=== PATIENT | female | born 1965 | race Caucasian/White ===

== ENCOUNTER 2020-07-17 08:17 | Emergency (ER) | payer OTHER ==
--- OUTSIDE RECORDS SUMMARY | 2020-07-17 08:33 | XMS REPORT | Clinical Summary ---
:1965 Author Organization [facility] Address [address] [place] [address] Care Team Providers Name Role Phone Asked, No Pcp Primary Care Provider Unavailable Allergies Active Allergy Reactions Severity Noted Date Comments Sulfa (Sulfonamide Antibiotics) Hives 0 sweling Medications Medication Sig Dispensed Refills Start Date End Date Status amLODIPine (NORVASC) 5 Take 5 mg by 0 Active mg tablet mouth daily. triamterene-hydrochlorot Take 1 tablet by 0 Active hiazid (MAXZIDE-25) mouth daily. 37.5-25 mg per tablet levothyroxine Take 150 mcg by 0 Active (SYNTHROID) 150 mcg mouth daily. tablet simvastatin (ZOCOR) 20 Take 20 mg by 0 Active mg tablet mouth nightly. diclofenac (VOLTAREN) 75 Take 75 mg by 0 Active MG EC tablet mouth 2 (two) times a day. Active Problems No known active problems Encounters Date Type Specialty Care Team Description 07/09/2020 Orders Only General Surgery Mallorie Arreguin RN Preop e xamination (Primary Dx); Benign essentia l hypertension; Morbid obesity (HCC); Hyperlipidemia, unspecified hyperlipidemia type 07/03/2020 Travel 06/27/2020 Orders Only General Surgery Harmony Hinson MA Pre-op erative laboratory examination (Primary Dx); BMI 40.0-44.9, adult (HCC); Morbid obesity due to excess calories (HCC); Essential hyper tension; Hyperlipidemia, unspecified hyperlipidemia type 06/02/2020 Office Visit General Surgery Benji Antunez MD Morbid obesity due to excess calories (HCC) (Primary Dx); Essential hyper tension; Hyperlipidemia, unspecified hyperlipidemia type 06/02/2020 Travel 03/12/2020 Travel after 07/17/2019 Surgical History Surgery Date Site/Laterality Comments APPENDECTOMY 09/19/1974 - 09/18/1975 CHOLECYSTECTOMY 09/19/1997 - 09/18/1998 HYSTERECTOMY 09/19/1997 - 09/18/1998 partial TONSILLECTOMY 09/19/1981 - 09/18/1982 PLANTAR FASCIECTOMY 09/19/2001 - 09/18/2002 NM THYROID THERAPY ABLATION BASIC 09/19/2006 - 09/18/2007 KNEE CARTILAGE SURGERY 09/19/2016 - 09/18/2017 Right DEBRIDEMENT ELBOW DEEP Lateral 2014 TIBIA FRACTURE SURGERY 09/19/2017 - 09/18/2018 Left ank le TOE SURGERY 09/19/2019 - 09/18/2020 Right Medical History Medical History Date Comments Allergic GERD (gastroesophageal reflux disease) Hyperlipidemia Hypertension Arthritis Family History Medical History Relation Name Comments Hypertension Father Heart disease Maternal Grandfather Breast cancer Maternal Grandmother Aortic stenosis Mother Heart disease Mother Hypertension Mother Stroke Mother Relation Name Status Comments Father Maternal Grandfather Maternal Grandmother Mother Social History Tobacco Use Types Packs/Day Years Used Date Never Smoker Smokeless Tobacco: Never Used Alcohol Use Drinks/Week oz/Week Comments Yes 2-3 times a corin h Sex Assigned at Date Recorded Not on file COVID-19 Exposure Response Date Recorded In the last month, have you been in contact Unable to assess 07/03/2020 9:28 AM CDT with someone who was confirmed or suspected to have Coronavirus / COVID-19? Last Filed Vital Signs Vital Sign Reading Time Taken Comments Blood Pressure 164/86 06/02/2020 12:52 PM CDT Pulse 68 06/02/2020 12:52 PM CDT Temperature 36 C (96.8 F) 06/02/2020 12:52 PM CDT Respiratory Rate 18 06/02/2020 12:52 PM CDT Oxygen Saturation 97% 06/02/2020 12:52 PM CDT Inhaled Oxygen Concentration - - Weight 123 kg (271 lb 14.4 oz) 06/02/2020 12:52 PM CDT Height 170.2 cm (5' 7") 06/02/2020 12:52 PM CDT Body Mass Index 42.59 06/02/2020 12:52 PM CDT Plan of Treatment Date Type Specialty Care Team Description 08/11/2020 Pre-Admission Pre-Admission Benji Antunez, Testing Testing [address] [facility] [address] [place] [address] 08/25/2020 Office Visit General Surgery Benji Antunez MD [address] [facility] [address] [place], [place] [id number] 08/29/2020 Hospital Encounter General Surgery Benji Antunez MD [address] [facility] [address] [place], [place] [id number] 08/29/2020 Surgery General Surgery Benji Antunez LAPAROSCO PIC EDWINA EN Y MD GASTRIC BYPASS WITH [address] [facility] END[address] [place], [place] [id number] Health Maintenance Due Date Last Done Comments CERVICAL CANCER SCREENING 11/26/1984 BREAST CANCER SCREENING 11/26/2013 COLONOSCOPY SCREENING 11/26/2013 SHINGLES VACCINES (#1) 11/26/2013 INFLUENZA VACCINE 04/19/2020 Results Not on fileafter 07/17/2019 Advance Directives For more information, please contact: [phone] Type Date Recorded 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
--- OUTSIDE RECORDS SUMMARY | 2020-07-17 08:34 | XMS REPORT | Continuity of Care Document ---
:1965 Author Organization [facility] t Address [address] [place] [address] [address] [place] [address] Care Team Providers Name Role Phone Asked, Pcp Primary Care Physician Unavailable Kallie GONGORA Attending Clinician Unavailable Joya BROWN Attending Clinician Unavailable Annie JEAN BAPTISTE Attending Clinician Payers Payer Name Policy Type Policy Effective Date Expiration Date Sour ce Number CIGNAKELSEY [id number] 2011 [place] YBAMARILIS CIGNA 00:00:00 [facility] [id number] /2011-PresentHMO Problems This patient has no known problems. Allergies, Adverse Reactions, Alerts Allergy Allergy Status Severity Reaction(s) Onset Inactive Treating Comm ents Source Name Type Date Date Clinician Sulfa Propensi Active Hives Man [facility] (Sulfona ty to 06-02 Methodi mide adverse 00:00: st Antibiot reaction 00 ics) s to drug Family History Family Member Diagnosis Comments Start Date Stop Date Source Natural father Hypertension [facility] Maternal grandfather Heart disease [facility] Maternal grandmother Breast cancer [facility] Natural mother Aortic stenosis [place] [facility] Natural mother Heart disease [facility] Natural mother Hypertension [facility] Social History Social Habit Start Date Stop Date Quantity Comments Source Sex Assigned At [facility] Exposure to Unable to assess [facility] SARS-CoV-2 (event) Tobacco use and 2020-06-02 2020-06-02 Never used [facility] ethodist exposure 00:00:00 00:00:00 Alcohol intake 2020-06-02 2020-06-02 Current drinker [place] [facility] 00:00:00 00:00:00 of alcohol (finding) Alcohol Comment 2020-06-02 2020-06-02 2-3 times a Jose Elias Wardist 00:00:00 00:00:00 month Smoking Status Start Date Stop Date Source Never smoker Jose Elias Killian t Medications Ordered Filled Start Stop Current Ordering Indication Dosage Frequency Signature Comments Components Source Medication Medication Date Date Medication? Clinician (SIG) Name Name amLODIPine 2020-0 Yes 5mg QD Take 5 mg [place] (NORVASC) 5 9-14 by mouth Meth florinda mg tablet 13:45: daily. st 32 triamterene 2020-0 Yes 1{tbl} QD Take 1 [place] -hydrochlor 9-14 tablet by Met hodi othiazid 13:45: mouth st (MAXZIDE-25 32 daily. ) 37.5-25 mg per tablet levothyroxi 2019-0 Yes 150ug QD Take 150 [place] ne 9-14 mcg by Methodi (SYNTHROID) 13:45: mouth st 150 mcg 32 daily. tablet simvastatin 2019-0 Yes 20mg QD Take 20 mg [place] (ZOCOR) 20 9-14 by mouth Metho di mg tablet 13:45: nightly. st 32 diclofenac 2020-0 Yes 75mg Q.5D Take 75 mg [place] (VOLTAREN) 9-14 by mouth 2 Met hodi 75 MG EC 13:45: (two) st tablet 32 times a day. Vital Signs Vital Name Observation Time Observation Value Comments Source Systolic blood 2020-06-02 12:52:00 164 mm[Hg] [place] n [facility] pressure Diastolic blood 2020-06-02 12:52:00 86 mm[Hg] [place] [facility] pressure Heart rate 2020-06-02 12:52:00 68 /min Jose Elias [place] Body temperature 2020-06-02 12:52:00 36 Emily [place] [facility] Respiratory rate 2020-06-02 12:52:00 18 /min [place] [facility] Body height 2020-06-02 12:52:00 170.2 cm Jose Elias [place] Body weight 2020-06-02 12:52:00 123.333 kg Jose Elias [place] BMI 2020-06-02 12:52:00 42.59 kg/m2 Jose Elias [place] Oxygen saturation in 2020-06-02 12:52:00 97 /min Jose Elias [place] Arterial blood by Pulse oximetry Procedures This patient has no known procedures. Plan of Care Planned Activity Planned Date Details Comments Source Future Scheduled Test 2020-04-19 INFLUENZA VACCINE [place] [facility] 00:00:00 [code = INFLUENZA VACCINE] Future Scheduled Test 2013-11-26 BREAST CANCER [place] [facility] 00:00:00 SCREENING [code = BREAST CANCER SCREENING] Future Scheduled Test 2013-11-26 COLONOSCOPY [place] [facility] 00:00:00 SCREENING [code = COLONOSCOPY SCREENING] Future Scheduled Test 2013-11-26 SHINGLES VACCINES [place] [facility] 00:00:00 (#1) [code = SHINGLES VACCINES (#1)] Future Scheduled Test 1984-11-26 Screening for [place] [facility] 00:00:00 malignant neoplasm of cervix (procedure) [code = 646736170] Future Appointment 2020-08-29 Benji Antunez MD, [facility] 11:00:[address] [place] [address]; [address] [place] [address] Future Appointment 2020-08-29 Benji Antunez MD, [facility] 11:00:[address] [place] [address]; [address] [place] [address] Encounters Start End Encounter Admission Attending Care Care Encounter Source Date/Time Date/Time Type Type Clinicians Facility Department ID 2020-06-02 2020-06-02 Outpatient ANNIE Sebastian [facility] [id number] [address] 00:00:00 00:00:00 BENJI [id number] Results This patient has no known results.
[2020-07-17] MEDS ORDERED: MECLIZINE HCL 12.5 MG TAB ONE (08:51)
[2020-07-17] MEDS ORDERED: DIAZEPAM 10 MG/2 ML INJ SYRINGE ONE ×2 (08:51→13:03)
[2020-07-17] MEDS ORDERED: ONDANSETRON 4 MG/2 ML VIAL ONE ×2 (08:51→12:09)
[2020-07-17] MEDS ORDERED: NA CHLORIDE 0.9% 500 ML ONE (08:52)
[2020-07-17 08:54] LABS: Absolute Lymphocytes (CBC) 3.8 K/uL (0.7-4.9); Basophils % 1.2 % (0-1.3); Hematocrit 45.7 % (36.0-45.0); Lymphocytes % 32.9 % (15.3-44.8); MPV 7.5 fL (7.6-11.3); RBC Red Blood Cell Count 5.13 M/uL (3.86-4.86)
[2020-07-17 09:00] LABS: Protime INR 0.97
--- NOTE | 2020-07-17 09:04 | RAD REPORT ---
EXAM DESCRIPTION: CT - Head Brain Wo Cont - 07/17/2020 8:56 am CLINICAL HISTORY: Dizziness COMPARISON: None. TECHNIQUE: Computed axial tomography of the head was obtained. IV contrast was not requested. All CT scans are performed using dose optimization technique as appropriate and may include automated exposure control or mA/KV adjustment according to patient size. FINDINGS: An intracranial bleed is not seen . Partial empty sella turcica The ventricles are normal in caliber. No extra-axial fluid collection is noted. Fluid within the sinuses/ mastoids is not seen. IMPRESSION: No acute intracranial abnormality is seen. If patient's symptoms persist MRI of the bra in would be recommended.
--- NOTE | 2020-07-17 09:08 | RAD REPORT ---
EXAM DESCRIPTION: Isabel Single View07/17/2020 9:02 am CLINICAL HISTORY: Dizziness COMPARISON: none FINDINGS: The lungs appear clear of acute infiltrate. The heart is normal size IMPRESSION: No acute abnormalities displayed
[2020-07-17 09:21] LABS: ALT/SGPT 40 U/L (12-78); AST/SGOT 37 U/L (15-37); Albumin 3.7 g/dL (3.4-5.0); Alkaline Phosphatase 103 U/L (45-117); BUN Blood Urea Nitrogen 22 mg/dL (7-18); Bicarbonate 26 mmol/L (21-32); Bilirubin Direct 0.1 mg/dL (0-0.2); Bilirubin Total 0.5 mg/dL (0.2-1.0); Glucose Level 121 mg/dL (74-106); NT PRO-BNP 45 pg/mL (<125); Potassium 3.6 mmol/L (3.5-5.1); Protein, Total 7.5 g/dL (6.4-8.2); Sodium Level 144 mmol/L (136-145); Troponin (Emerg Dept Use Only) < 0.02 ng/mL (0.0-0.045)
--- NOTE | 2020-07-17 12:12 | RAD REPORT ---
EXAM DESCRIPTION: MRI - MRA Neck W/Wo Cont - 07/17/2020 11:39 am CLINICAL HISTORY: Blurred vision/dizziness COMPARISON: None. TECHNIQUE: Magnetic resonance angiogram of the neck was performed. Twenty cc MultiHance was administ ered intravenously. 3D MIPS reconstruction performed FINDINGS: The common carotid, internal carotid and external carotid arteries do not demonstrate a si gnificant stenosis. An aneurysm is not seen. The vertebral arteries are codominant without visualization of an abnormality. IMPRESSION: Unremarkable MRA neck NASCET criteria used. Mild 0-49% stenosis Moderate 50-69% stenosis Severe 70-99% stenosis
--- NOTE | 2020-07-17 12:16 | RAD REPORT ---
EXAM DESCRIPTION: MRI - MRA Head Wo Cont - 07/17/2020 11:39 am CLINICAL HISTORY: Blurred vision/dizziness COMPARISON: None. TECHNIQUE: Magnetic resonance angiogram was performed. 3D MIPS reconstruction performed FINDINGS: The anterior cerebral, middle cerebral, posterior cerebral, distal internal carotid and ba silar arteries do not demonstrate a significant stenosis. An aneurysm is not displayed. Dolichoectasia of the vertebrobasilar artery IMPRESSION: No significant abnormality displayed
--- NOTE | 2020-07-17 12:17 | RAD REPORT ---
EXAM DESCRIPTION: MRI - Brain W/Wo Cont - 07/17/2020 11:39 am CLINICAL HISTORY: Blurred vision/dizziness COMPARISON: July 17, [address] TECHNIQUE: Axial, sagittal, and coronal magnetic images of the brain were obtained. 20 cc MultiHance administered intravenously FINDINGS: No significant abnormal signal within the brain noted The ventricles are normal in caliber. Diffusion-weighted/ ADC mapping sequences do not demonstrate evidence of an acute infarction. No abnormal enhancement within the brain is seen. An extra-axial fluid collection is not noted. Fluid within the sinuses/mastoids is not seen IMPRESSION: No acute abnormality displayed
--- NOTE | 2020-07-17 13:25 | ER ---
Nurse's Notes [facility] Name: May Hernadez Age: 54 yrs Sex: Female : 1965 Arrival Date: 07/17/2020 Time: 08:20 Bed 6 Private MD: Diagnosis: Dizziness and giddiness;Other peripheral vertigo, bilateral Presentation: 07/17 08:25 Chief complaint: Patient states: dizziness, n/v, feeling like she was leaning to the sv right while walking, occipital headache, generalized weakness, blurry vision with possible floaters started yesterday at 1200. Stated that her and her had been traveling on the road all day yesterday. Coronavirus screen: Client denies travel out of the [place] in the last 14 days. At this time, the client does not indicate any symptoms associated with coronavirus-19. Ebola Screen: No symptoms or risks identified at this time. Initial Sepsis Screen: Does the patient meet any 2 criteria? No. Patient's initial sepsis screen is negative. Does the patient have a suspected source of infection? No. Patient's initial sepsis screen is negative. Risk Assessment: Do you want to hurt yourself or someone else? Patient reports no desire to harm self or others. Onset of symptoms was July 16, 2020 at 12:00. 08:25 Method Of Arrival: Wheelchair sv 08:25 Acuity: OZZIE 3 sv Triage Assessment: 08:25 General: Appears in no apparent distress. uncomfortable, obese, well groomed, well sv developed, Behavior is calm, cooperative, appropriate for age. Pain: Complains of pain in scalp Pain began 1 day ago. Is intermittent. Neuro: Level of Consciousness is awake, alert, obeys commands, Oriented to person, place, time, situation, Moves all extremities. Full function Gait is steady, Speech is normal, Facial symmetry appears normal, Reports blurred vision dizziness, headache occipital area, weakness. Cardiovascular: Patient's skin is warm and dry. Rhythm is sinus rhythm. Respiratory: Airway is patent Respiratory effort is even, unlabored, Respiratory pattern is regular, symmetrical. GI: Reports intolerance of fluids, nausea, vomiting. Derm: Skin is intact, Skin is pink, warm \T\ dry. Musculoskeletal: Range of motion: intact in all extremities. Historical: - Allergies: 08:48 Sulfa (Sulfonamide Antibiotics); sv - PSHx: 08:48 Thyroidectomy; sv - Immunization history:: Adult Immunizations up to date. - Social history:: Smoking status: Patient denies any tobacco usage or history of. Screenin:25 Abuse screen: Denies threats or abuse. Denies injuries from another. Nutritional sv screening: No deficits noted. Tuberculosis screening: No symptoms or risk factors identified. Fall Risk None identified. 09:18 Patient has been NPO before screening. The patient is alert, able to follow commands. sv The patient does not exhibit slurred or garbled speech The patient is not exhibiting difficulty speaking. The patient does not exhibit difficulty understanding words. The patient is able to swallow own secretions with no drooling or need for suction. Patient tolerated one teaspoon of water. No drooling, immediate coughing, gurgling, or clearing of the throat was noted. The patient tolerated 90mL of water. No drooling, immediate coughing, gurgling, or clearing of the throat was noted. The patient passed the bedside swallow screening. Oral medications may be given as ordered. Contact Physician for further diet orders. Provider notified of bedside swallow screening results: Hipolito Rice MD. Assessment: 08:43 Reassessment: Unable to perform swallow evaluation d/t pt being nauseous and vomiting sv at this time. 09:21 Reassessment: Patient appears in no apparent distress at this time. Patient and/or sv family updated on plan of care and expected duration. Pain level reassessed. Patient is alert, oriented x 3, equal unlabored respirations, skin warm/dry/pink. Patient states feeling better. Patient states symptoms have improved. GI: Patient currently denies nausea, vomiting. 10:20 Reassessment: Patient and/or family updated on plan of care and expected duration. Pain ll1 level reassessed. Patient is alert, oriented x 3, equal unlabored respirations, skin warm/dry/pink. irrigating right ear. 11:15 Reassessment: Patient and/or family updated on plan of care and expected duration. Pain ll1 level reassessed. Patient is alert, oriented x 3, equal unlabored respirations, skin warm/dry/pink. 12:15 Reassessment: Patient and/or family updated on plan of care and expected duration. Pain ll1 level reassessed. Patient is alert, oriented x 3, equal unlabored respirations, skin warm/dry/pink. 13:15 Reassessment: Patient and/or family updated on plan of care and expected duration. Pain ll1 level reassessed. Patient is alert, oriented x 3, equal unlabored respirations, skin warm/dry/pink. 13:38 Reassessment: Patient and/or family updated on plan of care and expected duration. Pain ll1 level reassessed. Patient is alert, oriented x 3, equal unlabored respirations, skin warm/dry/pink. Vital Signs: 08:25 BP 149 / 93; Pulse 81; Resp 14; Temp 98; Pulse Ox 95% ; sv 09:21 BP 128 / 76; Pulse 68; Resp 16; Pulse Ox 96% on R/A; sv 10:16 BP 121 / 70; Pulse 63; Resp 16; Pulse Ox 99% ; ll1 12:00 BP 134 / 78; Pulse 69; Resp 17; Pulse Ox 100% ; ll1 13:25 BP 126 / 96; Pulse 70; Resp 16; Pulse Ox 99% ; ll1 13:37 BP 132 / 86; Pulse 75; Resp 17; Pulse Ox 100% ; Pain 0/10; ll1 [place] Coma Score: 08:25 Eye Response: spontaneous(4). Verbal Response: oriented(5). Motor Response: obeys sv commands(6). Total: 15. ED Course: 08:20 Patient arrived in ED. rg4 08:21 Hipolito Rice MD is Attending Physician. kdr 08:24 Elise Klein, FRANSISCA is Primary Nurse. sv 08:25 Patient has correct armband on for positive identification. Placed in gown. Bed in low sv position. Call light in reach. Side rails up X2. Adult w/ patient. compressor engineer on. Pulse ox on. NIBP on. Door closed. Warm blanket given. Head of bed elevated. 08:25 Arm band placed on Patient placed in an exam room, on a stretcher, on upholstery auto trimmer, sv on pulse oximetry. 08:30 Inserted saline lock: 20 gauge in right antecubital area, using aseptic technique. sv Blood collected. Flushed right antecubital with 2 ml normal saline. 08:41 EKG done, by ED staff, reviewed by Hipolito Rice MD. 3 08:45 X-ray(s) taken. sv 08:47 Triage completed. sv 08:[address] via stretcher. sv 08:56 CT Head Brain wo Cont In Process Unspecified. EDMS 08:56 XRAY Chest (1 view) Sent. sv 09:01 Awaiting lab results, Awaiting radiology results. sv 09:02 XRAY Chest (1 view) In Process Unspecified. EDMS 09:21 Awaiting lab results. sv 09:48 Report given to Jw GONGORA. sv 10:28 Ear irrigation: amount 250ml Patient tolerated well. dh3 11:39 MRA Head Wo Cont In Process Unspecified. EDMS 11:39 MRA Neck W/Wo Cont In Process Unspecified. EDMS 11:39 Brain W/Wo Cont In Process Unspecified. EDMS 12:55 Ear irrigation: Route right ear with Normal Saline amount Other 100 ml Patient ll1 tolerated well small ball of earwax removed. 13:38 IV discontinued, intact, bleeding controlled, No redness/swelling at site. Pressure ll1 dressing applied. 13:38 No provider procedures requiring assistance completed. ll1 Administered Medications: 08:43 Drug: Zofran (Ondansetron) 4 mg Route: IVP; Site: right antecubital; sv 09:20 Follow up: Response: No adverse reaction; Marked relief of symptoms; Nausea is decreasedsv 08:44 Drug: NS 0.9% 500 ml Volume: 500 ml; Route: IV; Rate: 1 bolus; Site: right antecubital; sv 12:00 Follow up: Response: No adverse reaction; RASS: Alert and Calm (0); IV Status: ll1 Completed infusion; IV Intake: 500ml 08:45 Drug: Valium 2 mg Route: IVP; Site: right antecubital; sv 09:20 Follow up: Response: No adverse reaction; Marked relief of symptoms sv 09:20 Drug: Meclizine 25 mg Route: PO; sv 09:29 Follow up: Response: No adverse reaction sv 12:02 Drug: Zofran (Ondansetron) 4 mg Route: IVP; Site: right antecubital; ll1 12:56 Follow up: Response: No adverse reaction; RASS: Alert and Calm (0) ll1 12:56 Drug: Valium 2 mg Route: IVP; Site: right antecubital; ll1 13:27 Follow up: Response: No adverse reaction; RASS: Alert and Calm (0) ll1 Point of Care Testing: Blood Glucose: 08:30 Blood Glucose: 132 mg/dL; sv Ranges: Intake: 12:00 IV: 500ml; Total: 500ml. ll1 Outcome: 13:24 Discharge ordered by . kdr 13:38 Discharged to home via wheelchair. ll1 13:38 Condition: stable 13:38 Discharge instructions given to patient, family, Instructed on discharge instructions, follow up and referral plans. no drinking with medication, no driving heavy equipment, medication usage, Demonstrated understanding of instructions, follow-up care, medications, Prescriptions given X 2. 13:40 Patient left the ED. ll1 Signatures: Dispatcher [employer] EDElise Balderas, RN RN Hipolito Nobles MD MD kdr Garcia, [facility] Jw Rashid RN RN ll1 Corrections: (The following items were deleted from the chart) 08:50 08:25 Chief complaint: Patient states: dizziness, n/v, feeling like she was leaning to sv the right while walking, occipital headache, blurry vision with possible floaters started yesterday at 1200. sv
--- NOTE | 2020-07-17 13:25 | EDPHYS ---
Physician Documentation [facility] Name: May Hernadez Age: 54 yrs Sex: Female : 1965 Arrival Date: 07/17/2020 Time: 08:20 Bed 6 Private MD: ED Physician Hipolito Rice HPI: 07/17 08:51 This 54 yrs old Female presents to ER via Wheelchair with complaints of kdr Vomiting, Dizziness, Blurred Vision. 08:51 The patient presents to the emergency department with nausea, that is mild, vomiting, kdr that is intermittent. Onset: The symptoms/episode began/occurred gradually, yesterday. Possible causes: unknown. The symptoms are aggravated by movement, The symptoms are alleviated by remaining still. Associated signs and symptoms: Pertinent positives: nausea, vomiting, Pertinent negatives: abdominal pain, anorexia, belching, constipation, diarrhea, dysuria, fever, flatulence, GI bleeding, hematuria, vaginal discharge. Severity of symptoms: At their worst the symptoms were severe incapacitating just prior to arrival, in the emergency department the symptoms have improved mildly. The patient has not experienced similar symptoms in the past. The patient has not recently seen a physician. 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 Historical: - Allergies: 08:48 Sulfa (Sulfonamide Antibiotics); sv - PSHx: 08:48 Thyroidectomy; sv - Immunization history:: Adult Immunizations up to date. - Social history:: Smoking status: Patient denies any tobacco usage or history of. ROS: 08:44 Constitutional: Negative for fever, chills, and weight loss, Eyes: Negative for injury, kdr pain, redness, and discharge, Neck: Negative for injury, pain, and swelling, Cardiovascular: Negative for chest pain, palpitations, and edema, Respiratory: Negative for shortness of breath, cough, wheezing, and pleuritic chest pain, Abdomen/GI: Negative for abdominal pain, nausea, vomiting, diarrhea, and constipation, Back: Negative for injury and pain, : Negative for injury, bleeding, discharge, and swelling, Skin: Negative for injury, rash, and discoloration, Psych: Negative for depression, anxiety, suicide ideation, homicidal ideation, and hallucinations, Allergy/Immunology: Negative for hives, rash, and allergies, Endocrine: Negative for neck swelling, polydipsia, polyuria, polyphagia, and marked weight changes, Hematologic/Lymphatic: Negative for swollen nodes, abnormal bleeding, and unusual bruising. 08:44 Abdomen/GI: Positive for nausea and vomiting, nausea, vomiting, Negative for constipation, abdominal cramps, abdominal distension, anorexia, dysphagia, hematemesis, black/tarry stool, rectal pain, rectal bleeding, bowel incontinence. 08:44 Neuro: Positive for dizziness, weakness. Exam: 08:44 Constitutional: This is a well developed, well nourished patient who is awake, alert, kdr and in mild distress. Head/Face: Normocephalic, atraumatic. Eyes: Pupils equal round and reactive to light, extra-ocular motions intact. Lids and lashes normal. Conjunctiva and sclera are non-icteric and not injected. Cornea within normal limits. Periorbital areas with no swelling, redness, or edema. Neck: Trachea midline, no thyromegaly or masses palpated, and no cervical lymphadenopathy. Supple, full range of motion without nuchal rigidity, or vertebral point tenderness. No Meningismus. Chest/axilla: Normal chest wall appearance and motion. Nontender with no deformity. No lesions are appreciated. Cardiovascular: Regular rate and rhythm with a normal S1 and S2. No gallops, murmurs, or rubs. Normal PMI, no JVD. No pulse deficits. Respiratory: Lungs have equal breath sounds bilaterally, clear to auscultation and percussion. No rales, rhonchi or wheezes noted. No increased work of breathing, no retractions or nasal flaring. Abdomen/GI: Soft, non-tender, with normal bowel sounds. No distension or tympany. No guarding or rebound. No evidence of tenderness throughout. Back: No spinal tenderness. No costovertebral tenderness. Full range of motion. Skin: Warm, dry with normal turgor. Normal color with no rashes, no lesions, and no evidence of cellulitis. MS/ Extremity: Pulses equal, no cyanosis. Neurovascular intact. Full, normal range of motion. Psych: Awake, alert, with orientation to person, place and time. Behavior, mood, and affect are within normal limits. 08:44 ECG was reviewed by the Attending Physician. 08:44 Neuro: Orientation: is normal, Mentation: is normal, Memory: is normal, Cranial nerves: grossly normal, is grossly normal based on the patient's age, Cerebellar function: is grossly normal based on the patient's age, Motor: Sensation: is normal, Gait: is unsteady. Vital Signs: 08:25 BP 149 / 93; Pulse 81; Resp 14; Temp 98; Pulse Ox 95% ; sv 09:21 BP 128 / 76; Pulse 68; Resp 16; Pulse Ox 96% on R/A; sv 10:16 BP 121 / 70; Pulse 63; Resp 16; Pulse Ox 99% ; ll1 12:00 BP 134 / 78; Pulse 69; Resp 17; Pulse Ox 100% ; ll1 13:25 BP 126 / 96; Pulse 70; Resp 16; Pulse Ox 99% ; ll1 13:37 BP 132 / 86; Pulse 75; Resp 17; Pulse Ox 100% ; Pain 0/10; ll1 Rahat Coma Score: 08:25 Eye Response: spontaneous(4). Verbal Response: oriented(5). Motor Response: obeys sv commands(6). Total: 15. MDM: 13:24 Patient medically screened. kdr 17:41 Data reviewed: vital signs, nurses notes, lab test result(s), radiologic studies. kdr Counseling: I had a detailed discussion with the patient and/or guardian regarding: the historical points, exam findings, and any diagnostic results supporting the discharge/admit diagnosis, the need for outpatient follow up. 07/17 08:36 Order name: Basic Metabolic Panel; Complete Time: 09:42 kdr 07/17 08:36 Order name: CBC with Diff; Complete Time: 09:42 kdr 07/17 08:36 Order name: LFT's; Complete Time: 09:42 kdr 07/17 08:36 Order name: Magnesium; Complete Time: 09:42 kdr 07/17 08:36 Order name: NT PRO-BNP; Complete Time: 09:42 kdr 07/17 08:36 Order name: PT-INR; Complete Time: 09:42 kdr 07/17 08:36 Order name: Troponin (emerg Dept Use Only); Complete Time: 09:42 kdr 07/17 08:36 Order name: XRAY Chest (1 view); Complete Time: 09:42 kdr 07/17 08:36 Order name: CT Head Brain wo Cont; Complete Time: 09:42 kdr 07/17 08:46 Order name: Glucose, Ancillary Testing; Complete Time: 09:42 EDMS 07/17 11:11 Order name: MRA Head Wo Cont; Complete Time: 12:31 EDMS 07/17 11:15 Order name: MRA Neck W/Wo Cont; Complete Time: 12:13 EDMS 07/17 11:15 Order name: Brain W/Wo Cont; Complete Time: 12:31 EDMS 07/17 08:36 Order name: EKG; Complete Time: 08:37 kdr 07/17 08:36 Order name: Cardiac monitoring; Complete Time: 08:42 kdr 07/17 08:36 Order name: EKG - Nurse/Tech; Complete Time: 08:43 kdr 07/17 08:36 Order name: IV Saline Lock; Complete Time: : kdr 07/17 08:36 Order name: Labs collected and sent; Complete Time: 08:43 kdr 07/17 08:36 Order name: O2 Per Protocol; Complete Time: 08:43 kdr 07/17 08:36 Order name: O2 Sat Monitoring; Complete Time: 08:43 kdr EC:44 Rate is 76 beats/min. Rhythm is regular, Normal Sinus Rhythm with No ectopy, Right kdr bundle branch block. QRS [place] is Normal. Left axis deviation noted. OH interval is normal. QRS interval is normal. QT interval is normal. Clinical impression: NSR w/ Non-specific ST/T Changes and Abnormal EKG without significant change. Administered Medications: 08:43 Drug: Zofran (Ondansetron) 4 mg Route: IVP; Site: right antecubital; sv 09:20 Follow up: Response: No adverse reaction; Marked relief of symptoms; Nausea is decreasedsv 08:44 Drug: NS 0.9% 500 ml Volume: 500 ml; Route: IV; Rate: 1 bolus; Site: right antecubital; sv 12:00 Follow up: Response: No adverse reaction; RASS: Alert and Calm (0); IV Status: ll1 Completed infusion; IV Intake: 500ml 08:45 Drug: Valium 2 mg Route: IVP; Site: right antecubital; sv 09:20 Follow up: Response: No adverse reaction; Marked relief of symptoms sv 09:20 Drug: Meclizine 25 mg Route: PO; sv 09:29 Follow up: Response: No adverse reaction sv 12:02 Drug: Zofran (Ondansetron) 4 mg Route: IVP; Site: right antecubital; ll1 12:56 Follow up: Response: No adverse reaction; RASS: Alert and Calm (0) ll1 12:56 Drug: Valium 2 mg Route: IVP; Site: right antecubital; ll1 13:27 Follow up: Response: No adverse reaction; RASS: Alert and Calm (0) ll1 Point of Care Testing: Blood Glucose: 08:30 Blood Glucose: 132 mg/dL; sv Ranges: Critical Glucose Levels:Adult <50 mg/dl or >400 mg/dl <40 mg/dl or >180 mg/dl Disposition: 07/17/20 13:24 Discharged to Home. Impression: Dizziness and giddiness, Other peripheral vertigo, bilateral. - Condition is Stable. - Discharge Instructions: Vertigo, [id number], Dizziness, [id number]. - Prescriptions for Meclizine 25 mg Oral Tablet - take 1 tablet by ORAL route every 8 hours As needed; 30 tablet. Valium 2 mg Oral Tablet - take 1 tablet by ORAL route every 8 hours As needed; 20 tablet. - Medication Reconciliation Form, Thank You Letter form. - Follow up: Private Physician; When: 2 - 3 days; Reason: If symptoms return, Further diagnostic work-up, Recheck today's complaints, Continuance of care, Re-evaluation by your physician. - Problem is new. - Symptoms have improved. Signatures: Dispatcher [employer] [facility] Elise Klein RN RN sv Rittger, Kevin, MD MD kdr Lewis, Lynsay, RN RN ll1 Corrections: (The following items were deleted from the chart) 11:11 09:47 MR STROKE PROTOCOL+MRI.RAD.BRZ ordered. [facility] 13:40 13:24 07/17/2020 13:24 Discharged to Home. Impression: Dizziness and giddiness; Other ll1 peripheral vertigo, bilateral. Condition is Stable. Forms are Medication Reconciliation Form, Thank You Letter, Antibiotic Education, Prescription Opioid Use. Follow up: Private Physician; When: 2 - 3 days; Reason: If symptoms return, Further diagnostic work-up, Recheck today's complaints, Continuance of care, Re-evaluation by your physician. Problem is new. Symptoms have improved. kdr
[2020-07-17 13:47] VITALS: TEMP 98
[2020-07-17 13:54] VITALS: BP 132/86; O2SAT 100
== END 2020-07-17 13:40 | disposition home or self-care (01) ==
LOC: ER 08:17
DX: H81.393 Other peripheral vertigo, bilateral (principal); Z88.2 Allergy status to sulfonamides
CPT/HCPCS: 96361; 93005; 85025; 80048; 36415; 83735; 85610; 82947; 80076; 84484; 83880; 70450; 71045; 70553; 70544; 70549; 96375; 96374; 99285; A9577; J3360 ×2; J7040; J2405 ×2

== ENCOUNTER 2024-09-08 11:58 | Emergency (ER) | payer OTHER ==
--- NOTE | 2024-09-08 12:44 | EDPHYS ---
Physician Documentation [facility] Name: May Hernadez Age: 58 yrs Sex: Female : 1965 Arrival Date: 09/08/2024 Time: 11:58 Bed 12 Private MD: MARGARITO Physician Rafa Ragsdale HPI: 09/08 12:40 This 58 yrs old Female presents to ER via Ambulatory with complaints of Hand tennille Injury - Finger injury/left. 12:40 The patient or guardian reports decreased range of motion, deformity, pain. The tennille complaints affect the DIP of left ring finger. Context: The problem was sustained at a sports field or court. Onset: The symptoms/episode began/occurred yesterday. Modifying factors: The symptoms are alleviated by holding still, the symptoms are aggravated by movement. Associated signs and symptoms: The patient has no apparent associated signs or symptoms. The patient has not experienced similar symptoms in the past. Historical: - Allergies: 12:08 Sulfa (Sulfonamide Antibiotics); iw - PMHx: 12:08 None; iw - Immunization history:: Adult Immunizations. - Infectious Disease History:: Denies. - Family history:: not pertinent. - Social history:: Smoking status: . ROS: 12:40 Constitutional: Negative for fever, chills, and weight loss, Eyes: Negative for injury, tennille pain, redness, and discharge, ENT: Negative for injury, pain, and discharge, Neck: Negative for injury, pain, and swelling, Cardiovascular: Negative for chest pain, palpitations, and edema, Respiratory: Negative for shortness of breath, cough, wheezing, and pleuritic chest pain, Abdomen/GI: Negative for abdominal pain, nausea, vomiting, diarrhea, and constipation, Back: Negative for injury and pain, : Negative for injury, bleeding, discharge, and swelling, Skin: Negative for injury, rash, and discoloration, Neuro: Negative for headache, weakness, numbness, tingling, and seizure, Psych: Negative for depression, anxiety, suicide ideation, homicidal ideation, and hallucinations, Allergy/Immunology: Negative for hives, rash, and allergies, Endocrine: Negative for neck swelling, polydipsia, polyuria, polyphagia, and marked weight changes, 12:40 : Negative for injury or acute deformity, 12:40 MS/extremity: Positive for deformity, pain, tenderness, of the dorsal aspect of distal phalanx of left ring finger, Exam: 12:40 Constitutional: This is a well developed, well nourished patient who is awake, alert, tennille and in no acute distress. Head/Face: Normocephalic, atraumatic. Eyes: Pupils equal round and reactive to light, extra-ocular motions intact. Lids and lashes normal. Conjunctiva and sclera are non-icteric and not injected. Cornea within normal limits. Periorbital areas with no swelling, redness, or edema. ENT: Nares patent. No nasal discharge, no septal abnormalities noted. Tympanic membranes are normal and external auditory canals are clear. Oropharynx with no redness, swelling, or masses, exudates, or evidence of obstruction, uvula midline. Mucous membranes moist. Neck: Trachea midline, no thyromegaly or masses palpated, and no cervical lymphadenopathy. Supple, full range of motion without nuchal rigidity, or vertebral point tenderness. No Meningismus. Chest/axilla: Normal chest wall appearance and motion. Nontender with no deformity. No lesions are appreciated. Cardiovascular: Regular rate and rhythm with a normal S1 and S2. No gallops, murmurs, or rubs. Normal PMI, no JVD. No pulse deficits. Respiratory: Lungs have equal breath sounds bilaterally, clear to auscultation and percussion. No rales, rhonchi or wheezes noted. No increased work of breathing, no retractions or nasal flaring. Abdomen/GI: Soft, non-tender, with normal bowel sounds. No distension or tympany. No guarding or rebound. No evidence of tenderness throughout. Back: No spinal tenderness. No costovertebral tenderness. Full range of motion. Skin: Warm, dry with normal turgor. Normal color with no rashes, no lesions, and no evidence of cellulitis. Neuro: Awake and alert, GCS 15, oriented to person, place, time, and situation. Cranial nerves II-XII grossly intact. Motor strength 5/5 in all extremities. Sensory grossly intact. Cerebellar exam normal. Normal gait. Psych: Awake, alert, with orientation to person, place and time. Behavior, mood, and affect are within normal limits. 12:40 Musculoskeletal/extremity: ROM: full active range of motion, full passive range of motion, Circulation is intact in all extremities. Sensation intact. Compartment Syndrome exam of affected extremity: is normal. Vital Signs: 12:07 BP 156 / 94; Pulse 65; Resp 16; Temp 97.3; Pulse Ox 100% on R/A; Weight 76.2 kg; Height iw 5 ft. 7 in. ; Pain 5/10; 12:07 Body Mass Index 26.31 (76.20 kg, 170.18 cm) 12:07 Pain Scale: Adult iw MDM: 12:08 Medical Screening Exam initiated [facility] 12:42 Differential diagnosis: closed fracture. Data reviewed: vital signs, nurses notes, tennille radiologic studies, plain films. Consideration of Admission/Observation Escalation of care including admission/observation considered. I considered the following discharge prescriptions or medication management in the emergency department Medications were administered in the Emergency Department. See MAR. Independent interpretation of the following test(s) in the Emergency Department. Test considered but Not performed: Labs: no labs. Care significantly affected by the following chronic conditions: none. 09/08 12:28 Order name: Hand Left 3 View XRAY [facility] 09/08 12:28 Order name: Splint - Finger; Complete Time: 13:17 tennille Administered Medications: No medications were administered Disposition Summary: 09/08/24 12:44 Discharge Ordered Notes: Location: Home [facility] Problem: new [facility] Symptoms: have improved tennille Condition: Stable tennille Diagnosis - Mallet finger of left finger(s) tennille - Displaced fracture of distal phalanx of left middle finger - mynor null Followup: tennille - With: Private Physician - When: 2 - 3 days - Reason: Recheck today's complaints, Continuance of care, Re-evaluation by your physician Discharge Instructions: - Discharge Summary Sheet tennille - Mallet Finger tennille Forms: - Medication Reconciliation Form tennille - Antibiotic Education tennille - Prescription Opioid Use tennille - Patient Portal Instructions tennille - Leadership Thank You Letter [facility] Prescriptions: - Diclofenac Sodium 75 mg Oral tablet, delayed release (enteric coated) - take 1 tablet ORAL route 2 times per day; 20 tablet; Refills: 0, Product tennille Selection Permitted Signatures: Dispatcher [employer] Rafa Sandoval MD MD cha Williams, Irene, RN RN iw
--- NOTE | 2024-09-08 12:44 | ER ---
Nurse's Notes [facility] Name: May Hernadez Age: 58 yrs Sex: Female : 1965 Arrival Date: 09/08/2024 Time: 11:58 Bed 12 Private MD: Diagnosis: Mallet finger of left finger(s);Displaced fracture of distal phalanx of left middle finger-mynor Presentation: 09/08 12:07 Chief complaint: Patient states: injured her 3rd and fourth digit on left hand. iw Coronavirus screen: At this time, the client does not indicate any symptoms associated with coronavirus-19. Ebola Screen: No symptoms or risks identified at this time. Initial Sepsis Screen: Does the patient meet any 2 criteria? No. Patient's initial sepsis screen is negative. Does the patient have a suspected source of infection? No. Patient's initial sepsis screen is negative. Risk Assessment: Do you want to hurt yourself or someone else? Patient reports no desire to harm self or others. Onset of symptoms was September 08, 2024. 12:07 Method Of Arrival: Ambulatory iw 12:07 Acuity: OZZIE 4 iw Triage Assessment: 13:27 General: Appears in no apparent distress. Behavior is calm, cooperative. iw Historical: - Allergies: 12:08 Sulfa (Sulfonamide Antibiotics); iw - PMHx: 12:08 None; iw - Immunization history:: Adult Immunizations. - Infectious Disease History:: Denies. - Family history:: not pertinent. - Social history:: Smoking status: . Screenin:26 [facility] ED Fall Risk Assessment (Adult) History of falling in the last 3 months, iw including since admission No falls in past 3 months (0 pts) Confusion or Disorientation No (0 pts) Intoxicated or Sedated No (0 pts) Impaired Gait No (0 pts) Mobility Assist Device Used No (0 pt) Altered Elimination No (0 pt) Score/Fall Risk Level 0 - 2 = Low Risk Oriented to surroundings, Maintained a safe environment. Abuse screen: Denies threats or abuse. Denies injuries from another. Nutritional screening: No deficits noted. Tuberculosis screening: No symptoms or risk factors identified. Assessment: 12:15 General: Appears in no apparent distress. Behavior is calm, cooperative. Pain: iw Complains of pain in left hand and dorsal aspect of distal phalanx of left ring finger. Neuro: Level of Consciousness is awake, alert, obeys commands, Oriented to person, place, time, situation. Cardiovascular: Patient's skin is warm and dry. Respiratory: Respiratory effort is even, unlabored, Respiratory pattern is regular. Derm: Skin is healthy with good turgor. Musculoskeletal: Range of motion: limited in all extremities. Vital Signs: 12:07 BP 156 / 94; Pulse 65; Resp 16; Temp 97.3; Pulse Ox 100% on R/A; Weight 76.2 kg; Height iw 5 ft. 7 in. ; Pain 5/10; 12:07 Body Mass Index 26.31 (76.20 kg, 170.18 cm) iw 12:07 Pain Scale: Adult iw ED Course: 12:01 Patient arrived in ED. ra3 12:08 Rafa Ragsdale MD is Attending Physician. [facility] 12:08 Triage completed. iw 12:15 Arm band placed on. iw 12:15 Patient has correct armband on for positive identification. Provided Education on: . iw 12:50 Hand Left 3 View XRAY In Process Unspecified. [facility] 13:04 Neris Heaton, RN is Primary Nurse. iw 13:26 No provider procedures requiring assistance completed. Patient did not have IV access iw during this emergency room visit. Administered Medications: No medications were administered Medication: 13:15 VIS not applicable for this client. iw Outcome: 12:44 Discharge ordered by . [facility] 13:26 Discharged to home ambulatory, with family, iw 13:26 Condition: good 13:26 Discharge instructions given to patient, Instructed on discharge instructions, follow up and referral plans. medication usage, Demonstrated understanding of instructions, follow-up care, medications, Prescriptions given X 1, 13:27 Patient left the ED. iw Signatures: Dispatcher [employer] [facility] Rafa Ragsdale MD MD cha Williams, Irene, RN RN iw Mary Lou Potter ra3
--- NOTE | 2024-09-08 12:58 | RAD REPORT ---
EXAM: Hand Left 3 View HISTORY: PAIN COMPARISON: None FINDINGS: Slightly displaced fracture at the base of the third distal phalanx. No definite intra-articular exte nsion. This is only seen on the lateral view. Well-corticated fragment along the dorsal aspect of the fourth finger at the head of the middle phalanx may represent a remote fracture. No acute fourth digit fracture identified. IMPRESSION: Slightly displaced fracture involving the ascending the third distal phalanx.
[2024-09-08 13:32] VITALS: BP 156/94; TEMP 97.3; O2SAT 100
== END 2024-09-08 13:27 | disposition home or self-care (01) ==
LOC: ER 11:58
PROC: 2W3KX1Z Immobilization of Left Finger using Splint (ICD-10-PCS; principal; 2024-09-08)
DX: M20.012 Mallet finger of left finger(s) (principal); S62.635A Displaced fracture of distal phalanx of left ring finger, initial encounter for closed fracture
CPT/HCPCS: 99283